=== PATIENT | female | born 1970 | race Caucasian/White ===

== ENCOUNTER 2020-12-06 10:29 | Emergency (ER) | payer BC, OTHER ==
[~2020-12-06] VITALS: Ht 162.6 cm; Wt 111.1 kg
[2020-12-06 10:29] VITALS: BP_SYST 153
[~2020-12-06 10:29] MED LIST: ALPR0.25; LISI10TA29
[2020-12-06 13:53] VITALS: BP_SYST 145
== END 2020-12-06 13:42 | disposition home or self-care (01) ==
LOC: SED 10:29
DX: M54.6 Pain in thoracic spine (principal); I10 Essential (primary) hypertension; W01.0XXA Fall on same level from slipping, tripping and stumbling without subsequent striking against object, initial encounter; Y93.89 Activity, other specified; Y92.89 Other specified places as the place of occurrence of the external cause; Y99.8 Other external cause status
CPT/HCPCS: 71046-TC; 72080-TC; 99284

== ENCOUNTER 2021-12-31 05:46 | Emergency (ER) | payer MEDICAID, OTHER ==
[~2021-12-31] VITALS: Ht 165.1 cm; Wt 124.7 kg
[2021-12-31 05:50] VITALS: BP_SYST 139
--- NOTE | 2021-12-31 05:50 | NUR ---
Patient triaged and placed in waiting room. VSS and patient appears in no acute distress at this time. Accompanied by fam member, awaiting available bed, and MD notified of need for MSE.
--- NOTE | 2021-12-31 06:30 | NUR ---
ER examining patient in the lobby.
--- NOTE | 2021-12-31 07:15 | NUR ---
PT IS IN ER WAITING ROOM. PT AMBULATES TO LAB FOR BLOOD DRAW WITH STAFF
[2021-12-31 07:34] LABS: BASOPHILS # (AUTO) 0.1 K/uL (0.0-0.2); EOSINOPHILS # (AUTO) 0.1 K/uL (0.0-0.4); EOSINOPHILS % (AUTO) 0.9 % (0.0-4.0); HEMATOCRIT 44.8 % (36-48); HEMOGLOBIN 15.2 g/dL (12.0-16.0); LYMPHOCYTES # (AUTO) 3.2 K/uL (1.0-5.5); MEAN CORPUSCULAR HEMOGLOBIN 29 pg (27-31); MEAN CORPUSCULAR HGB CONC 34 % (32-36); MEAN CORPUSCULAR VOLUME 86 fL (79.0-98.0); MONOCYTES # (AUTO) 0.4 K/uL (0.0-1.0); MONOCYTES % (AUTO) 3.8 % (1.7-9.3); NEUTROPHILS # (AUTO) 6.9 K/uL (1.8-7.7); NEUTROPHILS % (AUTO) 64.3 % (40.0-70.0); PLATELET COUNT (AUTO) 365 K/uL (130-430); RED BLOOD CELL COUNT(AUTO) 5.23 MIL/uL (4.2-6.2); RED CELL DISTRIBUTION WIDTH 13.9 % (9.0-15.0); WHITE BLOOD COUNT (AUTO) 10.7 K/uL (4.8-10.8)
[2021-12-31 07:41] LABS: CALCIUM 10.4 mg/dL (8.4-11.0); CREATININE 0.84 mg/dL (0.55-1.30); POTASSIUM 4.1 mmol/L (3.5-5.1)
[2021-12-31] MEDS ORDERED: ONDANSETRON 4 MG ODT TAB PO ONE (07:45)
[2021-12-31 07:56] LABS: ALBUMIN 3.6 g/dL (3.4-4.8); TOTAL BILIRUBIN 0.2 mg/dL (0.0-1.0)
[2021-12-31 08:04] LABS: C-REACTIVE PROTEIN QUANT 0.9 mg/dL (0-0.5)
[2021-12-31] MEDS ORDERED: IBUPROFEN 600 MG TABLET PO ONE (09:45)
[2021-12-31] MEDS ORDERED: PROMETHAZINE INJ.Non-Formulary 25 MG/ML AMP IVP ONE (09:45)
[2021-12-31] MEDS ORDERED: NACL 0.9% 1,000 ML IV ONE (09:45)
[2021-12-31] MEDS ORDERED: HYDROcodone/ACETAMIN 5-325 MG TAB (NORCO/ VICODIN) PO ONE (09:45)
[2021-12-31] MEDS ORDERED: IBUP-1969 PO (09:49)
[2021-12-31] MEDS ORDERED: ONDA-8 TL (09:49)
[2021-12-31] MEDS ORDERED: DIPHENHYDRAMINE INJ 50 MG/ML VIAL IVP ONE (10:00)
[2021-12-31] MEDS ORDERED: METOCLOPRAMIDE HCL 10 MG/2 ML VIAL IVP ONE (10:00)
--- NOTE | 2021-12-31 10:00 | NUR ---
Assessed patient at bedside. Pt presents stable vital signs.
--- NOTE | 2021-12-31 11:13 | NUR ---
Discharged with to a private car with stable vital signs.
[2021-12-31 12:00] VITALS: BP_SYST 121
== END 2021-12-31 11:13 | disposition home or self-care (01) ==
LOC: SED 05:46
DX: R10.32 Left lower quadrant pain (principal); I10 Essential (primary) hypertension
CPT/HCPCS: 36415; 74176; 76376; 80053; 81025; 82150; 82962; 83605; 83690; 84703; 85025; 86140; 96365; 96375; 99284; J1200; J2765; Q0162; J2550